=== PATIENT | female | born 1960 | race Caucasian/White ===

== ENCOUNTER 2022-02-27 10:15 | Emergency (ER) | payer MEDICAID ==
[~2022-02-27] VITALS: Ht 172.7 cm; Wt 90.7 kg
--- NOTE | 2022-02-27 10:20 | NUR ---
BIB [facility],WITNESSED SEIZURE
--- NOTE | 2022-02-27 10:30 | NUR ---
established iv line 20g , blood / urine obtained sent to lab
--- NOTE | 2022-02-27 10:34 | NUR ---
AT BEDSIDE FOR EVAL
[2022-02-27] MEDS ORDERED: LORAZEPAM INJ 2 MG/ML VIAL IVP ONE (11:00)
[2022-02-27] MEDS ORDERED: phenytoin SODIUM IV 1,000 MG in IV NS 0.9% 100 ML IV ONE (11:00)
[2022-02-27 11:29] LABS: ALCOHOL, BLOOD < 3 mg/dL (0-0); CALCIUM, SERUM 8.7 mg/dL (8.5-10.1); CARBON DIOXIDE 23 mmol/L (21-32); CHLORIDE 106 mmol/L (98-107); CREATININE 0.7 mg/dL (0.6-1.3); GLUCOSE 88 mg/dL (74-106); POTASSIUM 4.3 mmol/L (3.5-5.1); SODIUM SERUM 137 mmol/L (136-145); UREA NITROGEN, BLOOD 14 mg/dL (7-18)
[2022-02-27] MEDS ORDERED: LORAZEPAM INJ 2 MG/ML VIAL ONE (11:51)
[2022-02-27 11:55] LABS: PHENOBARBITAL 2 ug/ml (15-39); PHENYTOIN (DILANTIN) 3.5 ug/ml (10.0-20.0)
[2022-02-27 12:12] LABS: BASOPHILS % (AUTO) 0.6 % (0.0-2.0); EOSINOPHILS % (AUTO) 3.3 % (0.0-6.0); HEMATOCRIT 35 % (33-45); HEMOGLOBIN 10.8 g/dL (11.5-14.8); LYMPHOCYTES # (AUTO) 0.8 K/uL (0.8-4.8); LYMPHOCYTES % (AUTO) 23.2 % (20.0-44.0); MEAN CORPUSCULAR HGB CONC 31 g/dl (31.0-36.0); MEAN CORPUSCULAR VOLUME 87 fL (82-100); MONOCYTES # (AUTO) 0.3 K/uL (0.1-1.30); MONOCYTES % (AUTO) 9.4 % (2.0-12.0); NEUTROPHILS # (AUTO) 2.2 K/uL (1.8-8.9); NEUTROPHILS % (AUTO) 63.5 % (43.0-81.0); PLATELET COUNT (AUTO) 168 K/uL (150-450); RED BLOOD CELL COUNT(AUTO) 3.99 MIL/uL (4.0-5.2); WHITE BLOOD COUNT (AUTO) 3.5 K/uL (4.3-11.0)
[2022-02-27] MEDS ORDERED: LORA-259 PO (12:40)
[2022-02-27] MEDS ORDERED: PHEN100C4 PO (12:40)
--- NOTE | 2022-02-27 14:07 | NUR ---
[facility] CALLED FOR TRANSPORT ETA 60 MINS PER KEMAR.
--- NOTE | 2022-02-27 15:26 | NUR ---
EMT AT BEDSIDE TO [facility] PT
--- NOTE | 2022-02-27 15:30 | NUR ---
IV removed. Catheter intact and site benign. Pressure and 4x4 applied to site. No bleeding noted.
--- NOTE | 2022-02-27 15:48 | NUR ---
Patient discharged to home in stable condition via gurney, accompanied by 2 thermal cutting tracer machine operator. Written and verbal after care instructions given. Patient verbalizes understanding of instruction.
[2022-02-27 15:49] VITALS: BP 127/83
== END 2022-02-27 15:49 | disposition home or self-care (01) ==
LOC: ER 12:14
DX: G40.909 Epilepsy, unspecified, not intractable, without status epilepticus (principal); Z59.01 Sheltered homelessness; Z79.899 Other long term (current) drug therapy
CPT/HCPCS: 99284; 96365; 96375; 70450; 85025; 80048; 80185; 80184; 36415; 80320; J2060; J1165; J7030; J7050; G0480

== ENCOUNTER 2022-10-25 13:43 | Emergency (ER) | payer MEDICAID ==
[~2022-10-25] VITALS: Ht 172.7 cm; Wt 81.6 kg
[~2022-10-25 13:43] MED LIST: LORA-259 PO; PHEN100C4 PO
[2022-10-25 14:57] LABS: BASOPHILS % (AUTO) 0.9 % (0.0-2.0); EOSINOPHILS # (AUTO) 0.1 K/uL (0.0-0.7); EOSINOPHILS % (AUTO) 3.4 % (0.0-6.0); HEMATOCRIT 36 % (33-45); HEMOGLOBIN 11.5 g/dL (11.5-14.8); LYMPHOCYTES # (AUTO) 1.2 K/uL (0.8-4.8); LYMPHOCYTES % (AUTO) 35.6 % (20.0-44.0); MEAN CORPUSCULAR HEMOGLOBIN 28 PG (26.0-33.0); MEAN CORPUSCULAR HGB CONC 32 g/dl (31.0-36.0); MEAN CORPUSCULAR VOLUME 87 fL (82-100); MONOCYTES # (AUTO) 0.4 K/uL (0.1-1.30); MONOCYTES % (AUTO) 13.4 % (2.0-12.0); NEUTROPHILS # (AUTO) 1.5 K/uL (1.8-8.9); NEUTROPHILS % (AUTO) 46.7 % (43.0-81.0); PLATELET COUNT (AUTO) 174 K/uL (150-450); RED BLOOD CELL COUNT(AUTO) 4.11 MIL/uL (4.0-5.2); RED CELL DISTRIBUTION WIDTH 14.5 % (11.5-15.0); WHITE BLOOD COUNT (AUTO) 3.3 K/uL (4.3-11.0)
[2022-10-25 15:07] LABS: ALANINE AMINOTRANSFERASE 41 U/L (12-78); ALBUMIN 3.6 g/dL (3.4-5.0); ALKALINE PHOSPHATASE 190 U/L (46-116); ASPARTATE AMINOTRANSFERASE 56 U/L (15-37); BILIRUBIN,DIRECT 0.1 mg/dL (0.0-0.2); BILIRUBIN,TOTAL 0.3 mg/dL (0.2-1.0); CALCIUM, SERUM 9.4 mg/dL (8.5-10.1); CARBON DIOXIDE 26 mmol/L (21-32); CHLORIDE 105 mmol/L (98-107); CREATININE 0.7 mg/dL (0.6-1.3); GLUCOSE 89 mg/dL (74-106); POTASSIUM 3.5 mmol/L (3.5-5.1); SODIUM SERUM 139 mmol/L (136-145); TOTAL PROTEIN, SERUM 7.9 g/dL (6.4-8.2); UREA NITROGEN, BLOOD 8 mg/dL (7-18)
[2022-10-25 15:10] LABS: ACETAMINOPHEN 0 ug/ml (10-30); ALCOHOL, BLOOD < 3 mg/dL (0-10); SALICYLATE < 2.3 mg/dL (2.8-20.0)
[2022-10-25 15:10] LABS: APPEARANCE,URINE CLEAR (CLEAR); BILIRUBIN,URINE NEGATIVE (NEGATIVE); BLOOD, URINE TRACE-INTA Ery/uL (NEGATIVE); COLOR,URINE YELLOW (YELLOW); KETONES,URINE NEGATIVE (NEGATIVE); LEUKOCYTE ESTERASE ,URINE NEGATIVE (NEGATIVE); NITRITE, URINE NEGATIVE (NEGATIVE); PROTEIN,URINE NEGATIVE (NEGATIVE); UGLUCOSE NEGATIVE (NEGATIVE); UROBILINOGEN,URINE 0.2 EU/dL (0.2)
[2022-10-25 15:25] LABS: AMPHETAMINE, URINE NEGATIVE (NEGATIVE); BENZODIAZEPINE, URINE NEGATIVE (NEGATIVE); CANNABINOID, URINE NEGATIVE (NEGATIVE); COCCAINE, URINE NEGATIVE (NEGATIVE); OPIATE, URINE NEGATIVE (NEGATIVE); PHENCYCLIDINE SCREEN,URINE NEGATIVE (NEGATIVE)
[2022-10-25 15:27] LABS: BARBITURATE, URINE POSITIVE (NEGATIVE)
[2022-10-25 16:15] LABS: ADD URINE CULTURE NO; BACTERIA,URINE Few /HPF (None Seen); RBC,URINE 0-2 /HPF (0-2); WBC,URINE 0-2 /HPF (0-3)
[2022-10-25] MEDS ORDERED: diphenhydrAMINE HCL 50 MG/ML VIAL ONE (18:54)
[2022-10-25] MEDS ORDERED: LORAZEPAM INJ 2 MG/ML VIAL ONE (18:55)
[2022-10-25] MEDS ORDERED: diphenhydrAMINE HCL 50 MG/ML VIAL IM ONE (19:00)
[2022-10-25] MEDS ORDERED: LORAZEPAM INJ 2 MG/ML VIAL IM ONE (19:00)
[2022-10-26 12:21] VITALS: BP 101/64; TEMP 97.9; O2SAT 100
== END 2022-10-26 12:22 | disposition home or self-care (01) ==
LOC: ER 13:48
DX: R45.851 Suicidal ideations (principal); Z79.899 Other long term (current) drug therapy
CPT/HCPCS: 99285; 96372 ×2; 93005; 71045; 85025; 80048; 80076; 81001; 36415; 80143; 80320; 80307; J2060; J1200; G0480